=== PATIENT | male | born 2000 | race Two or more races ===

== ENCOUNTER 2020-09-06 04:39 | Emergency (ER) | payer MEDICAID ==
[~2020-09-06] VITALS: Ht 172.7 cm; Wt 68.0 kg
--- NOTE | 2020-09-06 04:58 | NUR ---
BROUGHT TO CT AND BACK
[2020-09-06] MEDS ORDERED: LORAZEPAM 1 MG TABLET PO ONE (05:00)
[2020-09-06] MEDS ORDERED: LORAZEPAM 0.5 MG TABLET ONE (05:01)
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
[2020-09-06] MEDS ORDERED: KETO10TA2 PO (06:02)
[2020-09-06] MEDS ORDERED: AMOX-430 PO (06:07)
--- NOTE | 2020-09-06 06:24 | NUR ---
Melany adrian in ED - 09/06/20 at 0635 by TIA Patient discharged to home in stable condition. Written and verbal after care instructions given. Patient verbalizes understanding of instruction. PT ambulatory with a steady gait
--- NOTE | 2020-09-06 06:33 | NUR ---
Patient discharged to home in stable condition. Written and verbal after care instructions given. Patient verbalizes understanding of instruction.
[2020-09-06 06:34] VITALS: BP 121/72
== END 2020-09-06 06:34 | disposition home or self-care (01) ==
LOC: ER 04:43
DX: S02.32XA Fracture of orbital floor, left side, initial encounter for closed fracture (principal); S00.12XA Contusion of left eyelid and periocular area, initial encounter; Y04.0XXA Assault by unarmed brawl or fight, initial encounter; Y93.89 Activity, other specified; Y92.89 Other specified places as the place of occurrence of the external cause; Y99.8 Other external cause status
CPT/HCPCS: 70450-TC; 70486-TC